=== PATIENT | male | born 1960 | race Caucasian/White ===

== ENCOUNTER 2024-04-02 12:51 | Emergency (ER) | payer MEDICARE, SELFPAY ==
[2024-04-02 13:01] VITALS: BP 166/70; PULSE 74; RESP 18; TEMP 37.1; O2SAT 95; BMI 22.8
--- NOTE | 2024-04-02 13:12 | ED.LOWEXIN ---
HPI - Extremity Injury (Lower) General Time Seen by Provider: 13:12 Date Seen: 04/02/24 Chief Complaint: Extremity Pain/Injury, Lower Stated Complaint: left knee pain - dislocation? 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 He states he was sitting cross-legged on the floor and went to get up trying to push up with the outside part of his foot when he had pain in his left knee with inability to straighten his leg entirely without significant pain. Ignacio notes that in the past he has felt his knee dislocate and then go back in after extended periods of kneeling for his job. He does not recall that his knee was deformed when this has happened to him in the past. He states that when he would get up he would feel his leg go ?clunk and it would be better. Today it did not happen. He admits that he does not usually sit in a cross-legged position. Patient also notes that he has been experiencing some discomfort along the outside of his left knee for quite some time. He is not currently on blood thinners. Denies any traumatic injury today. Pain greatly increases with any movement. He has not taken any medication at this time. He is preferring to have his knee in a slightly bent position. Related Data Home Medications ?Medication ?Instructions ?Recorded ?Confirmed No Known Home Medications 04/02/24 04/02/24 Allergies Allergy/AdvReac Type Severity Reaction Status Date / Time No Known Drug Allergies Allergy Verified 04/02/24 13:06 Review of Systems Status of ROS: Reports: 6 or more systems reviewed and unremarkable except as noted in History and below [facility] Social History Smoking Status: Never smoker Do you use any of these nicotine containing products: None Second hand tobacco smoke exposure: No How often do you have a drink containing alcohol: never AUDIT-C Alcohol total score: 0 Non-prescribed substance use: denies use service: No Exam Narrative: Exam Narrative: Alert and oriented. Very pleasant and talkative. No respiratory distress. Examination of the left knee shows some effusion. No significant point tenderness noted although he does have increased discomfort on the lateral joint line. No popliteal tenderness or swelling. Kneecap moves without difficulty. Increased pain with knee extension. Preferring to have his knee slightly bent. No unusual erythema. Valgus and varus tension in greatly increases pain Const: Vital Signs, click to edit/add: Vital Signs - 24 hr 04/02/24 13:01 Temperature 98.8 F Pulse Rate [Right Pulse Oximeter] 74 Respiratory Rate 18 Blood Pressure [Ri ght Upper Arm] 166/70 H Pulse Oximetry 95 Oxygen Delivery Me thod Room Air Documenting provider has reviewed patient's vital signs: yes Course Course ED Course: Differential diagnosis includes but is not limited to cartilage tear, meniscal flap, ACL/MCL tear, patellar subluxation. At this time anatomy is normal except the diffusion is mild but notable. Will obtain x-ray at this time. Vital Signs Vital signs: Initial Vital Signs Temperature 98.8 F 04/02/24 13:01 Temperature Source Temporal Artery Scan 04/02/24 13:01 Pulse Rate 74 04/02/24 13:01 Pulse Rhythm Regular 04/02/24 13:01 Pulse Strength 3+ Normal 04/02/24 13:01 Respiratory Rate 18 04/02/24 13:01 Blood Pressure 166/70 H 04/02/24 13:01 Blood Pressure Mean 102 04/02/24 13:01 Blood Pressure Position Sitting 04/02/24 13:01 Pulse Oximetry 95 04/02/24 13:01 Oxygen Delivery Method Room Air 04/02/24 13:01 Vital Signs Temperature 98.8 F 04/02/24 13:01 Pulse Rate 74 04/02/24 13:01 Respiratory Rate 18 04/02/24 13:01 Blood Pressure 166/70 H 04/02/24 13:01 Pulse Oximetry 95 04/02/24 13:01 Oxygen Delivery Method Room Air 04/02/24 13:01 Temperature 98.8 F 04/02/24 13:01 Pulse Rate 74 04/02/24 13:01 Respiratory Rate 18 04/02/24 13:01 Blood Pressure 166/70 H 04/02/24 13:01 Pulse Oximetry 95 04/02/24 13:01 Oxygen Delivery Method Room Air 04/02/24 13:01 MDM - Extremity Injury (Lower) MDM Narrative Medical decision making narrative: 1. Left knee pain-suspect a meniscal flap and tear which is inhibiting patient from completely extending his knee. I have asked him to limited that at this time and not try to force it. Will place him on crutches. Attempted knee immobilizer but it was not comfortable. Recommend ice elevation with knee and flexed position. I have spoken with orthopedic office and they will be calling him to set up an appointment for tomorrow. Often times this will reduce itself in the next 24 hours. He will need to return to the emergency room for worsening symptoms. States he does not have any ibuprofen or Tylenol at home and thus have given him a dose of ibuprofen 600 mg. Recommend ice to this area. 2. Disposition-home at this time. Does not yet have a primary physician as he states he just got on Medicare. [facility] and again, I have spoken to the office and they will be reaching out to him by phone tomorrow for follow-up. He may need MRI PT or both. Discharge Plan Discharge Clinical Impression: Acute pain of left knee Patient Disposition: Home, Self-Care Condition: Unchanged Additional Instructions: Alternate ibuprofen and Tylenol every 4 hours as needed. These are [id number] medications. Recommend ice to area of discomfort and elevating leg. Put a pillow underneath so that there is a slight bend in the leg. Do not force it to go straight. Expect for phone call from orthopedics for follow-up appointment. If you do not hear from them by Tuesday, please call them at [phone] Prescriptions: No Action No Known Home Medications Follow Up/Referrals: Provider,Not a Local [Primary Care Provider] - Stand Alone Forms: [employer] Info Instructions
--- NOTE | 2024-04-02 13:36 | CRLHL7_ITS ---
For Patients: As a result of the Century Cures Act, medical imaging exams and procedure reports are released immediately into your electronic medical record. You may view this report before your referring provider. If you have questions, please contact your health care provider. Indication: Pain after rising from sitting position. Technique: Left knee, 3 views. Comparison: None. Findings/Impression: Bones: Alignment is normal. No displaced fractures or bone lesions. Joint spaces: Moderate tricompartmental degenerative changes with narrowing of the medial femorotibial compartment. Soft tissues: Unremarkable. Dictated by Jacob Elliott MD @ 04/02/2024 2:33:34 PM (Electronically Signed)
[2024-04-02] MEDS: IBUPROFEN 200 MG TABLET 600 MG PO (15:02)
== END 2024-04-02 15:08 | disposition home or self-care (01) ==
PROVIDERS: Emergency Provider Family Medicine
DX: M25.562 Pain in left knee (principal)
CPT/HCPCS: 73562; 99284; A9270